=== PATIENT | female | born 1990 | race African-American/Black ===

== ENCOUNTER 2017-03-18 18:05 | Emergency (ER) | payer OTHER ==
[~2017-03-18] VITALS: Ht 139.7 cm; Wt 50.8 kg
[2017-03-18 21:30] LABS: URINE SOURCE CLEAN CATCH
[2017-03-18 21:40] LABS: URINE APPEARANCE CLEAR; URINE BILIRUBIN NEG (NEG); URINE BLOOD NEG (NEG); URINE COLOR YELLOW; URINE GLUCOSE NEG (NEG); URINE KETONE NEG (NEG); URINE LEUKOCYTE ESTERASE NEG (NEG); URINE NITRATE NEG (NEG); URINE PH 6.5 (5-8); URINE PROTEIN NEG (NEG)
[2017-03-18 21:47] LABS: CULTURE INDICATED? NO
[2017-03-21 12:02] LABS: CHLAMYDIA TRACH Not Detected (Not Detected); N GONOR Not Detected (Not Detected)
== END 2017-03-18 22:00 | disposition home or self-care (01) ==
LOC: CFTX 18:05 → CED 18:05 → CFTX 20:18
PROVIDERS: Nurse Practitioner
DX: B37.3 Candidiasis of vulva and vagina (principal); H61.23 Impacted cerumen, bilateral; I10 Essential (primary) hypertension
CPT/HCPCS: 81003; 87491; 87591; 87808; 87905; 99283